=== PATIENT | female | born 1980 | race Caucasian/White ===

== ENCOUNTER 2021-12-08 13:49 | Emergency (ER) | payer OTHER ==
[~2021-12-08] VITALS: Ht 152.4 cm; Wt 82.1 kg
[2021-12-08 14:21] VITALS: BP 120/78
--- NOTE | 2021-12-08 14:30 | NUR ---
PT AMBULATED TO BATHROOM WITH STEADY GAIT
--- NOTE | 2021-12-08 14:34 | NUR ---
PT AMBULATED TO LOBBY
--- NOTE | 2021-12-08 14:42 | NUR ---
PT AMBULATED TO BED 7 WITH STEADY GAIT
[2021-12-08] MEDS ORDERED: MORPHINE SULFATE 4 MG/ML SYR IM ONE (15:20)
[2021-12-08] MEDS ORDERED: IBUP-2213 PO (15:36)
[2021-12-08] MEDS ORDERED: ONDA8TAB87 PO (15:36)
[2021-12-08] MEDS ORDERED: ACET-8386 PO (15:36)
--- NOTE | 2021-12-08 16:25 | NUR ---
Patient discharged with v/s stable. Written and verbal after care instructions given and explained. Patient alert, oriented and verbalized understanding of instructions. Ambulatory with steady gait. All questions addressed prior to discharge. ID band removed. Patient advised to follow up with PMD. Rx of ibuprofen, norco 5/325, zofran given. Patient educated on indication of medication including possible reaction and side effects. Opportunity to ask questions provided and answered.
[2021-12-08 16:56] VITALS: BP 120/78
== END 2021-12-08 16:25 | disposition home or self-care (01) ==
LOC: MED 13:49
DX: R10.2 Pelvic and perineal pain (principal); Z90.49 Acquired absence of other specified parts of digestive tract; Z98.890 Other specified postprocedural states
CPT/HCPCS: 81002; 81025; 96372; 99284; J2270